=== PATIENT | female | born 1955 ===

== ENCOUNTER 2018-03-31 07:00 | Day surgery (SDC) | payer OTHER ==
[~2018-03-31 07:00] MED LIST: GABAPENTIN300 MG PO; PLAQUENIL PO; PREDISONE PO; VIMPAT150 MG PO
== END 2018-03-31 17:50 | disposition home or self-care (01) ==
LOC: CIR.AMB 07:00
DX: S52.532A Colles' fracture of left radius, initial encounter for closed fracture (principal)
CPT/HCPCS: 25609; 25118; 25280; C1776